=== PATIENT | female | born 1940 | race Caucasian/White ===

== ENCOUNTER 2024-07-03 21:57 | Emergency (ER) | payer MEDICARE, SELFPAY ==
[2024-07-03] VITALS (16 sets, daily range): BP systolic 104–130; BP diastolic 53–70; PULSE 74; TEMP 36.6; O2SAT 91–94; BMI 19.6
--- NOTE | 2024-07-03 22:14 | ED.URI1 ---
HPI - URI/Sore Throat General Chief Complaint: Upper Respiratory Infection Stated Complaint: Upper Respiratory Infection Time Seen by Provider: 07/03/24 22:05 Source: patient History of Present Illness HPI Narrative: sore throat for 4 days. Feels like swallowing razor blades. mild cough. Not short of breath. No abdominal pain, nausea or vomiting. No fever Related Data Home Medications ?Medication ?Instructions ?Recorded ?Confirmed amlodipine 5 mg tablet 5 mg PO DAILY 07/03/24 07/03/24 atenolol 100 mg tablet 100 mg PO DAILY 07/03/24 07/03/24 lisinopril 20 mg tablet 20 mg PO DAILY 07/03/24 07/03/24 rosuvastatin 10 mg tablet 10 mg PO DAILY 07/03/24 07/03/24 Allergies Allergy/AdvReac Type Severity Reaction Status Date / Time No Known Drug Allergies Allergy Verified 07/03/24 22:06 Review of Systems ROS Status of ROS 10 or more systems reviewed and unremarkable except as noted in history and below Exam Constitutional Vital Signs, click to edit/add: Last Vital Signs Temp 97.8 F 07/03/24 22:00 Pulse 74 07/03/24 22:00 Resp 18 07/03/24 22:00 BP 104/53 07/03/24 23:30 Pulse Ox 92 L 07/03/24 23:30 O2 Del Method Room Air 07/03/24 22:00 Common normals: no apparent distress, average body habitus, oriented x3, no limitations, healthy appearing, alert and well nourished [facility] Common normals: normocephalic and head/scalp atraumatic Eye Common normals: PERRL, EOMs intact bilaterally and conjunctivae normal Respiratory Common normals: normal respiratory effort, no retractions, no use of accessory muscles and clear to auscultation bilaterally Cardio Common normals: regular rate, regular rhythm, S1 normal heart sound and S2 normal heart sound GI Common normals: Normal to inspection, nondistended, normoactive bowel sounds present, soft to palpation and non-tender Extremity Common normals: normal to inspection and full ROM Neuro Common normals: oriented x3, CN's II-XII intact bilaterally, moves all extremities and no focal motor deficits Psych Appearance: grossly normal Course Vital Signs Vital signs: Vital Signs Temperature 97.8 F 07/03/24 22:00 Pulse Rate 74 07/03/24 22:00 Respiratory Rate 18 07/03/24 22:00 Blood Pressure 130/67 07/03/24 22:00 Pulse Oximetry 93 L 07/03/24 22:00 Oxygen Delivery Method Room Air 07/03/24 22:00 Temperature 97.8 F 07/03/24 22:00 Pulse Rate 74 07/03/24 22:00 Respiratory Rate 18 07/03/24 22:00 Blood Pressure 104/53 07/03/24 23:30 Pulse Oximetry 92 L 07/03/24 23:30 Oxygen Delivery Method Room Air 07/03/24 22:00 MDM - URI/Sore Throat MDM Narrative Medical decision making narrative: patient ill past 4 days with sore throat and mild cough. Not short of breath. No fever or distress. Main complaint is pain with swallowing. pharynx is clear and strep screen is neg. cxray with RML infiltrate. Patient medicated with Rocephin and zithromax. Discharged and advised of close follow up Lab Data Labs: Lab Results 07/03/24 Range/Units 22:05 SARS-CoV-2 Ag (CV2AG) Negative (NEGATIVE) Streptococcus Screen Negative Discharge Plan Discharge Chief Complaint: Upper Respiratory Infection Clinical Impression: Pharyngitis, Pneumonia Patient Disposition: Home, Self-Care Prescriptions / Home Meds: No Action atenolol 100 mg tablet 100 mg PO DAILY lisinopril 20 mg tablet 20 mg PO DAILY amlodipine 5 mg tablet 5 mg PO DAILY rosuvastatin 10 mg tablet 10 mg PO DAILY Print Language: Maldivian Instructions: Pharyngitis (ED), Community Acquired Pneumonia (ED) Additional Instructions: follow up with Dr Jacobo in the next couple of days for recheck Referrals: Donnell Raymond DO [Primary Care Provider] - 1 week
--- NOTE | 2024-07-03 22:16 | XR_ITS ---
The [address] [address] Patient Name: TAWANNA GREGORY MRN: [id number] date: 1940 Sex: F Assigned Patient Location: ED.MAIN Current Patient Location: ED.MAIN Accession/Order Number: [id number] Exam Date: 07/03/2024 22:22 Report Date: 07/03/2024 23:39 At the request of: MARTINEZ CHRISTIANSON Procedure: XR chest 2V XR chest 2V 07/03/2024 9:22 PM CDT: History: cough Comparison: None. Technique: 2 view chest Findings: The cardiomediastinal silhouette is normal there is a right middle lobe infiltrate. The left lung is clear. There is no effusion or pneumothorax. The bones are intact. XR/XR chest 2V Impression: Right middle lobe pneumonia. Recommend follow-up imaging to ensure resolution. Electronically authenticated by: MARK JOYCE Date: 07/03/2024 23:39
[2024-07-03 22:29] LABS: Internal Control Within Normal Limits; Strep A Antigen Screen Negative
[2024-07-03 22:30] LABS: Internal Control Within Normal Limits; SARS-CoV-2 Ag NEGATIVE (NEGATIVE)
[2024-07-04] VITALS: BP 112/60; O2SAT 92
[2024-07-04 00:10] VITALS: O2SAT 92
[2024-07-04] MEDS: CEFTRIAXONE 1,000 MG, LIDOCAINE HCL/PF 2.1 ML IM (00:13)
[2024-07-04] MEDS: AZITHROMYCIN 250 MG TABLET 500 MG PO (00:13)
== END 2024-07-04 00:33 | disposition home or self-care (01) ==
PROVIDERS: Emergency Provider Internal Medicine; PCP Family Medicine
DX: J02.9 Acute pharyngitis, unspecified (principal); J18.9 Pneumonia, unspecified organism; Z20.822 Contact with and (suspected) exposure to COVID-19
CPT/HCPCS: 71046; 87070; 87811; 87880; 96372; 99284; J0696

== ENCOUNTER 2024-07-11 10:40 | Outpatient (OUT) | payer MEDICARE, SELFPAY ==
--- NOTE | 2024-07-11 10:52 | XR_ITS ---
The [address] [address] Patient Name: TAWANNA GREGORY MRN: [id number] date: 1940 Sex: F Assigned Patient Location: RAD Current Patient Location: RAD Accession/Order Number: [id number] Exam Date: 07/11/2024 11:01 Report Date: 07/11/2024 11:54 At the request of: TERRY MARISCAL Procedure: XR chest 2V PROCEDURE: XR chest 2V DATE: 07/11/2024 10:01 AM CDT COMPARISONS: 07/03/2024 CLINICAL INDICATION: 84 years Female Pneumonia J18.9 FINDINGS: The cardiomediastinal silhouette and pulmonary vasculature are within normal limits. The previous exam from 07/03/2024 described right middle lobe pneumonia as noted in the right perihilar and infrahilar region on frontal view. On today's exam this presumed infiltrate is less prominent. The lungs are otherwise clear. There is no evidence of pleural effusion or pneumothorax. XR/XR chest 2V IMPRESSION: Subtle heterogeneous airspace disease of the right perihilar and infrahilar region on frontal view, likely representing resolving right middle lobe inflammatory infiltrate Electronically authenticated by: TALIA HUTCHINSON Date: 07/11/2024 11:54
--- OUTSIDE RECORDS SUMMARY | 2024-07-11 10:54 | XMS_ITS | CCD ---
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 Neutrophils (Bld) [#/Vol] 4.4 10*3/uL 1.8-7.7 [facility] Neutrophils/100 WBC Auto (Bl d)Ordered By: Christoph Dc on 11-20-2022 Neutrophils/100 WBC (Bld) 64.6 % . [facility] No Panel InformationOrdered By: Christoph Dc on 11-20-2022 POC Estimated GFR 57 [facility] Comment on above: GFR estimated refere nce range: According to KDOQI guidelines, <60 ml/min/1.73m2 is sufficient to diagnose a patient with chronic kidney disease. POC Estimated GFR Non- Amer 47 [facility] Estimated GFR () 57 mL/Min [facility] Comment on above: GFR estimated refere nce range: According to KDOQI guidelines, <60 ml/min/1.73m2 is sufficient to diagnose a patient with chronic kidney disease. Pharmacy Creatinine Clearance (Chem 36.34 [facility] Nucleated erythrocytes [Pres ence] in Blood by Automated countOrdered By: Christoph Dc on 11-20-2022 Nucleated RBC Auto Ql (Bld) 0.2 /100{WBC} 0-0.5 [facility] Platelet mean volume Auto (B ld) [Entitic vol]Ordered By: Christoph Dc on 11-20-2022 Platelet mean volume (Bld) [Entitic vol] 9.4 fL 6.3-10.7 [facility] Platelet poor plasma interna tional normalized ratio (INR) by coagulation assay (relatOrdered By: Christoph Dc on 11-20-2022 INR Coag (PPP) [Relative time] 1.0 {INR} [facility] Comment on above: INR Therapeutic Rang e A) Pre- and Peroperative OAT started two weeks before surgery. NOT HIP SURGERY: 1.5 - 2.5 HIP SURGERY: 2 - 3B) Primary and secondary prevention of venous THROMBOSIS: 2 - 3C) Active venous thrombosis, pulmonary embolismand prevention of recurrent venous thrombosis: 2 - 3D) Prevention of arterial thromboembolismincluding patients with mechanical heart valves: 3 - 4.5 Platelets Auto (Bld) [#/Vol] Ordered By: Christoph Dc on 11-20-2022 Platelets (Bld) [#/Vol] 181 10*3/uL 150-450 [facility] Protein [Mass/volume] in Ser um or PlasmaOrdered By: Christoph Dc on 11-20-2022 Protein [Mass/Vol] 6.6 g/dL 6.1-7.9 [facility] RBC Auto (Bld) [#/Vol]Ordere d By: Christoph Dc on 11-20-2022 RBC (Bld) [#/Vol] 4.07 10*6/uL 3.60-5.00 [facility] Serum or plasma alanine white otransferase measurement without P-5'-P (enzymatic activiOrdered By: Christoph Dc on 11-20-2022 ALT No additional P-5'-P [Catalytic activity/Vol] 31 U/L 10-60 [facility] Serum or plasma albumin/glob ulin mass ratioOrdered By: Christoph Dc on 11-20-2022 Albumin/Globulin [Mass ratio] 1.2 {ratio} [facility] Serum or plasma alkaline gisell sphatase measurement (enzymatic activity/volume)Ordered By: Christoph Dc on 11-20-2022 ALP [Catalytic activity/Vol] 66 U/L 32-92 [facility] Serum or plasma anion gap de terminationOrdered By: Christoph Dc on 11-20-2022 Anion gap [Moles/Vol] 14.3 mmol/L 6.0-15.0 [facility] Serum or plasma aspartate am inotransferase measurement (enzymatic activity/volume)Ordered By: Christoph Dc on 11-20-2022 AST [Catalytic activity/Vol] 44 U/L 10-42 [facility] Serum or plasma calcium myrna urement (mass/volume)Ordered By: Christoph Dc on 11-20-2022 Calcium [Mass/Vol] 9.7 mg/dL 8.2-10.2 [facility] Serum or plasma chloride dimas surement (moles/volume)Ordered By: Christoph Dc on 11-20-2022 Chloride [Moles/Vol] 102 mmol/L 95-114 [facility] Serum or plasma glucose myrna urement (mass/volume)Ordered By: Christoph Dc on 11-20-2022 Glucose [Mass/Vol] 195 mg/dL 70-100 [facility] Comment on above: ADA recommended refe rence rangeRandom Glucose Reference Range is dependent on time and content of last meal. Glucose of more than 200 mg/dL in a nonstressed, ambulatory subject supports the diagnosis of Diabetes Mellitus. Serum or plasma non-glucuron idated bilirubin measurement (mass/volume)Ordered By: Christoph Dc on 11-20-2022 Bilirubin.indirect [Mass/Vol] TNP [facility] Comment on above: Test not performed Serum or plasma potassium me asurement (moles/volume)Ordered By: Christoph Dc on 11-20-2022 Potassium [Moles/Vol] 3.6 mmol/L 3.5-5.1 [facility] Serum or plasma sodium measu rement (moles/volume)Ordered By: Christoph Dc on 11-20-2022 Sodium [Moles/Vol] 138 mmol/L 136-146 [facility] Serum or plasma total biliru bin measurement (mass/volume)Ordered By: Christoph Dc on 11-20-2022 Bilirubin [Mass/Vol] 0.5 mg/dL 0.3-1.2 [facility] Serum or plasma total carbon dioxide measurement (moles/volume)Ordered By: Christoph Dc on 11-20-2022 CO2 [Moles/Vol] 25.3 mmol/L 22.0-30.0 [place] Serum or plasma urea nitroge n measurement (mass/volume)Ordered By: Christoph Dc on 11-20-2022 Urea nitrogen [Mass/Vol] 10 mg/dL 9-23 [facility] Troponin I.cardiac [Mass/vol ume] in Serum or Plasma by High sensitivity methodOrdered By: Christoph Dc on 11-20-2022 Troponin I.cardiac High sensitivity method [Mass/Vol] 11 pg/mL 0-15 [facility] WBC Auto (Bld) [#/Vol]Ordere d By: Christoph Dc on 11-20-2022 WBC (Bld) [#/Vol] 6.9 10*3/uL 3.8-11.6 [facility] COVID + FLU Quick Testingon 10-23-2022 SARS-CoV-2 (COVID-19) RNA JEREMIAH+probe Ql (Unsp spec) Negative [facility] Other COVID + FLU Quick Testing Negative [facility] Other RSVon 10-23-2022 RSV Ag IA Ql (Unsp spec) Positive [facility] Other Body fluid albumin measureme nt (mass/volume)Ordered By: Donnell Raymond on 07-09-2022 Albumin (Body fld) [Mass/Vol] 4.0 g/dL 3.2-5.5 [facility] Cholesterol [Mass/volume] in Serum or PlasmaOrdered By: Donnell Raymond on 07-09-2022 Cholesterol [Mass/Vol] 200 mg/dL 140-200 [facility] Comment on above: Chol less than 200 m g/dl low riskChol 201-239 mg/dl borderline riskChol 240 mg/dl and greater high risk Cholesterol in LDL Calc [Mas s/Vol]Ordered By: Donnell Raymond on 07-09-2022 Cholesterol in LDL [Mass/Vol] 87 mg/dL 0-100 [facility] Comment on above: LDL ATP III CLASSIFI CATIONLDL less than 100 mg/dL OptimalLDL 100-129 mg/dL Near or above optimalLDL 130-159 mg/dL Borderline highLDL 160-189 mg/dL HighLDL greater than 189 mg/dL Very high Cholesterol in VLDL Calc [Ma ss/Vol]Ordered By: Donnell Raymond on 07-09-2022 Cholesterol in VLDL [Mass/Vol] 30 mg/dL [facility] Creatinine and Glomerular fi ltration rate.predicted panel (S/P/Bld)Ordered By: Donnell Raymond on 07-09-2022 Creatinine [Mass/Vol] 0.91 mg/dL 0.44-1.03 [facility] Estimated glomerular filtrat ion rate (GFR) non- AmericanOrdered By: Donnell Raymond on 07-09-2022 GFR/1.73 sq M.predicted among non-blacks MDRD (S/P/Bld) [Vol rate/Area] 59 mL/Min [facility] Globulin Calc (S) [Mass/Vol] Ordered By: Donnell Raymond on 07-09-2022 Globulin (S) [Mass/Vol] 3.0 g/dL [facility] No Panel InformationOrdered By: Donnell Raymond on 07-09-2022 Estimated GFR () > 60 mL/Min [facility] Comment on above: GFR estimated refere nce range: According to KDOQI guidelines, <60 ml/min/1.73m2 is sufficient to diagnose a patient with chronic kidney disease. Pharmacy Creatinine Clearance (Chem N/A [facility] Protein [Mass/volume] in Ser um or PlasmaOrdered By: Donnell Raymond on 07-09-2022 Protein [Mass/Vol] 7.0 g/dL 6.1-7.9 [facility] Serum or plasma alanine white otransferase measurement without P-5'-P (enzymatic activiOrdered By: Donnell Raymond on 07-09-2022 ALT No additional P-5'-P [Catalytic activity/Vol] 21 U/L 10-60 [facility] Serum or plasma albumin/glob ulin mass ratioOrdered By: Donnell Raymond on 07-09-2022 Albumin/Globulin [Mass ratio] 1.3 {ratio} [facility] Serum or plasma alkaline gisell sphatase measurement (enzymatic activity/volume)Ordered By: Donnell Raymond on 07-09-2022 ALP [Catalytic activity/Vol] 46 U/L 32-92 [facility] Serum or plasma anion gap de terminationOrdered By: Donnell Raymond on 07-09-2022 Anion gap [Moles/Vol] 13.0 mmol/L 6.0-15.0 [facility] Serum or plasma aspartate am inotransferase measurement (enzymatic activity/volume)Ordered By: Donnell Raymond on 07-09-2022 AST [Catalytic activity/Vol] 25 U/L 10-42 [facility] Serum or plasma calcium myrna urement (mass/volume)Ordered By: Donnell Raymond on 07-09-2022 Calcium [Mass/Vol] 9.5 mg/dL 8.2-10.2 [facility] Serum or plasma chloride dimas surement (moles/volume)Ordered By: Donnell Raymond on 07-09-2022 Chloride [Moles/Vol] 98 mmol/L 95-114 [facility] Serum or plasma glucose myrna urement (mass/volume)Ordered By: Donnell Raymond on 07-09-2022 Glucose [Mass/Vol] 96 mg/dL 70-100 [facility] Comment on above: ADA recommended refe rence rangeRandom Glucose Reference Range is dependent on time and content of last meal. Glucose of more than 200 mg/dL in a nonstressed, ambulatory subject supports the diagnosis of Diabetes Mellitus. Serum or plasma high density lipoprotein (HDL) cholesterol measurementOrdered By: Donnell Raymond on 07-09-2022 Cholesterol in HDL [Mass/Vol] 83 mg/dL 35-85 [facility] Comment on above: HDL CHOL ATP-III CLA SSIFICATION Cardiovascular RiskHDL > or equal to 60 mg/dL LOWHDL < 40 mg/dL HIGH Serum or plasma potassium me asurement (moles/volume)Ordered By: Donnell Raymond on 07-09-2022 Potassium [Moles/Vol] 4.1 mmol/L 3.5-5.1 [facility] Serum or plasma sodium measu rement (moles/volume)Ordered By: Donnell Raymond on 07-09-2022 Sodium [Moles/Vol] 136 mmol/L 136-146 [facility] Serum or plasma total biliru bin measurement (mass/volume)Ordered By: Donnell Raymond on 07-09-2022 Bilirubin [Mass/Vol] 0.7 mg/dL 0.3-1.2 [facility] Serum or plasma total carbon dioxide measurement (moles/volume)Ordered By: Donnell Raymond on 07-09-2022 CO2 [Moles/Vol] 29.1 mmol/L 22.0-30.0 [place] Serum or plasma total choles terol/high density lipoprotein (HDL) cholesterol mass ratOrdered By: Donnell Raymond on 07-09-2022 Cholesterol.total/Chol esterol in HDL [Mass ratio] 2.4 {ratio} <5.0 [facility] Serum or plasma urea nitroge n measurement (mass/volume)Ordered By: Donnell Raymond on 07-09-2022 Urea nitrogen [Mass/Vol] 9 mg/dL 9-23 [facility] Triglyceride [Mass/volume] i n Serum or PlasmaOrdered By: Donnell Raymond on 07-09-2022 Triglyceride [Mass/Vol] 150 mg/dL 35-149 [facility] Comment on above: TRIG ATP III CLASSIF ICATIONTRIG less than 150 mg/dL NormalTRIG 150-199 mg/dL Borderline highTRIG 200-500 mg/dL High TRIG greater than 500 mg/dL Very highStandard traceable to the Center for Disease Conrtrol and Prevention (CDC) test method. Complete Blood Count Auto Di ffon 04-02-2022 Basophils (Bld) [#/Vol] 0.184820383 10*3/uL Normal 0.0-0.2 10*3/uL [facility] Other Basophils/100 WBC (Bld) 1.000 % . % [facility] Other Eosinophils (Bld) [#/Vol] 0.377279634 10*3/uL Normal 0.0-0.45 10*3/uL [facility] Other Eosinophils/100 WBC (Bld) 3.000 % . % [facility] Other Erythrocyte distribution width (RBC) [Ratio] 14.600 % Normal 11.9-15.3 % [facility] Other Hematocrit (Bld) [Volume fraction] 39.100 % Normal 34.0-46.4 % [facility] Other Hemoglobin (Bld) [Mass/Vol] 13.070046 g/dL Normal 11.8-15.4 g/dL [facility] Other Lymphocytes (Bld) [#/Vol] 1.533664802 10*3/uL Normal 1.00-4.8 10*3/uL [facility] Other Lymphocytes/100 WBC (Bld) 28.400 % . % [facility] Other MCH (RBC) [Entitic mass] 33.2000 pg Normal 24.7-34.3 pg [facility] Other MCV (RBC) [Entitic vol] 99.5000 fL Normal 80-100 fL [facility] Other Monocytes (Bld) [#/Vol] 0.728320563 10*3/uL Normal 0.0-0.8 10*3/uL [facility] Other Monocytes/100 WBC (Bld) 10.300 % . % [facility] Other Neutrophils (Bld) [#/Vol] 3.542607245 10*3/uL Normal 1.8-7.7 10*3/uL [facility] Other Neutrophils/100 WBC (Bld) 57.300 % . % [facility] Other Platelet mean volume (Bld) [Entitic vol] 9.3000 fL Normal 6.3-10.7 fL [facility] Other Platelets (Bld) [#/Vol] 250 10*3/uL Normal 150-450 10*3/uL [facility] Other RBC (Bld) [#/Vol] 3.4792231109 10*6/uL Normal 3. 60-5.00 10*6/uL [facility] Other WBC (Bld) [#/Vol] 6.766312607 10*3/uL Normal 3.8 -11.6 10*3/uL [facility] Other Complete Blood Count Auto Diff 6.2 10*3/uL Normal 4.5-11.0 10*3/uL [facility] Other Complete Blood Count Auto Diff 33.3 g/dL Normal 32.0-35.0 g/dL [facility] Other Complete Blood Count Auto Diff 0.0 % Normal 0-0.5 % [facility] Other Comprehensive Metabolic Pane bravo 04-02-2022 Albumin [Mass/Vol] 4.973731 g/dL Normal 3.2-5.5 g/dL [facility] Other Albumin/Globulin [Mass ratio] 1.5 {ratio} [facility] Other ALP [Catalytic activity/Vol] 50 U/L Normal 32-92 U/L [facility] Other ALT [Catalytic activity/Vol] 18 U/L Normal 10-60 U/L [facility] Other AST [Catalytic activity/Vol] 25 U/L Normal 10-42 U/L [facility] Other Bilirubin [Mass/Vol] 0.9525599 mg/dL Normal 0.3- 1.2 mg/dL [facility] Other Calcium [Mass/Vol] 9.9099494 mg/dL Normal 8.2-10 .2 mg/dL [facility] Other Chloride [Moles/Vol] 98 mmol/L Normal 95-114 mmol/L [facility] Other CO2 [Moles/Vol] 26.82987408 mmol/L Normal 22.0-3 0.0 mmol/L [facility] Other Creatinine [Mass/Vol] 0.72090647 mg/dL Normal 0. 44-1.03 mg/dL [facility] Other Glucose [Mass/Vol] 96 mg/dL Normal 70-100 mg/dL [facility] Other Potassium [Moles/Vol] 4.18104562 mmol/L Normal 3 .5-5.1 mmol/L [facility] Other Protein [Mass/Vol] 7.365323 g/dL Normal 6.1-7.9 g/dL [facility] Other Sodium [Moles/Vol] 137 mmol/L Normal 136-146 mmol/L [facility] Other Urea nitrogen [Mass/Vol] 12 mg/dL Normal 9-23 mg/dL [facility] Other Comprehensive Metabolic Panel 58 [facility] Other Comprehensive Metabolic Panel > 60 [facility] Other Comprehensive Metabolic Panel 2.9 g/dL [facility] Other Thyroid Stimulating Hormoneo n 04-02-2022 TSH Qn 2.69459197593 m[IU]/L Normal 0.45-5 .33 u[iU]/mL [facility] Other Covid-19 PCR (CVDTBH)on EUA Statement SEE BELOW Normal [facility] Comment on above: Result Comment: This test is not yet approved or cleared by the [place] FDA. When there are no FDA-approved or cleared tests available, and other criteria are met, FDA can make tests available under an emergency access mechanism called an Emergency Use Authorization (EUA). The EUA for this test is supported by the Janitorial Assistant of Health and Human Service?s (HHS?s) declaration that circumstances exist to justify the emergency use of in vitro diagnostics for the detection and/or diagnosis of the virus that causes COVID-19. This EUA will remain in effect (meaning this test can be used) for the duration of the COVID-19 declaration justifying emergency of IVDs, unless it is terminated or revoked by FDA (after which the test may no longer be used). When diagnostic testing is negative, the possibility of a false negative should be considered in the context of a patients recent exposures and the presence of clinical signs and symptoms consistent with SARS-CoV-2. Performed By: #### C VDTB #### [facility] [address] [place] [id number] [employer] SARS-CoV-2 (COVID-19) RNA JEREMIAH+probe Ql (Unsp spec) Detected Abnormal NOT DETECTED [facility] Comment on above: Result Comment: This test is not yet approved or cleared by the [place] FDA. When there are no FDA-approved or cleared tests available, and other criteria are met, FDA can make tests available under an emergency access mechanism called an Emergency Use Authorization (EUA). The EUA for this test is supported by the [place] of Health and Human Service's (HHS's) declaration that circumstances exist to justify the emergency use of in vitro diagnostics for the detection and/or diagnosis of the virus that causes COVID-19. This EUA will remain in effect (meaning this test can be used) for the duration of the COVID-19 declaration justifying emergency of IVDs, unless it is terminated or revoked by FDA (after which the test may no longer be used). Performed By: #### C VDTB #### [facility] [address] [place] [id number] [employer] Vital Signs Date Time Vital Sign Value Performing Clinician Facility 04-06-2024 09:49-0400 Body height 170.18 cm DO Donnell Raymond Work Phone: [facility] 04-06-2024 09:49-0400 Body mass index (BMI) [Ratio] 19.1 kg/m2 DO Donnell Raymond Work Phone: [facility] 04-06-2024 09:49-0400 Body weight 55.33 kg DO Donnell Raymond Work Phone: [facility] 04-06-2024 09:49-0400 Diastolic blood pressure 62 mm[Hg] DO Donnell Raymond Work Phone: [facility] 04-06-2024 09:49-0400 Heart rate 77 /min DO Donnell Raymond Work Phone: [facility] 04-06-2024 09:49-0400 Respiratory rate 16 /min DO Donnell Raymond Work Phone: [facility] 04-06-2024 09:49-0400 SaO2% (BldA) [Mass fraction] 92 % DO Donnell Raymond Work Phone: [facility] 04-06-2024 09:49-0400 Systolic blood pressure 126 mm[Hg] DO Donnell Raymond Work Phone: [facility] 06-23-2023 10:00-0400 Body height 170.18 cm Sherry Gaytan Other [facility] [place] Other 06-23-2023 10:00-0400 Body mass index (BMI) [Ratio] 19.73 kg/m2 Sherry Gaytan Other [facility] Other 06-23-2023 10:00-0400 Body weight 57.15 kg Sherry Gaytan Other [facility] Other 06-23-2023 10:00-0400 Diastolic blood pressure 54 mm[Hg] Sherry [employer] Other [facility] Other 06-23-2023 10:00-0400 Systolic blood pressure 116 mm[Hg] Sherry [employer] Other [facility] Other 04-01-2023 09:15-0400 Body height 170.18 cm Donnell griddigjose d Other [facility] Other 04-01-2023 09:15-0400 Body mass index (BMI) [Ratio] 20.2 kg/m2 Donnellmaki Godwinjose d Other [facility] Other 04-01-2023 09:15-0400 Body weight 58.51 kg Donnell Raymond Other [facility] Other 04-01-2023 09:15-0400 Diastolic blood pressure 64 mm[Hg] Donnellmaki Raymond Other [facility] Other 04-01-2023 09:15-0400 Respiratory rate 16 /min Donnell Mandi Other [facility] Other 04-01-2023 09:15-0400 SaO2% (BldA) [Mass fraction] 96 % Donnellmaki Raymond Other [facility] Other 04-01-2023 09:15-0400 Systolic blood pressure 128 mm[Hg] Donnellmaki Raymond Other [facility] Other 03-31-2023 09:20-0400 Body height 170.18 cm [employer] Other [facility] Other 03-31-2023 09:20-0400 Body mass index (BMI) [Ratio] 19.58 kg/m2 [employer] Other [facility] Other 03-31-2023 09:20-0400 Body weight 56.7 kg [employer] Other [facility] Other 02-17-2023 10:20-0400 Body height 170.18 cm [employer] Other [facility] Other 02-17-2023 10:20-0400 Body mass index (BMI) [Ratio] 19.58 kg/m2 Sherry Gaytan Other [facility] Other 02-17-2023 10:20-0400 Body weight 56.7 kg Sherry Gaytan Other [facility] Other 01-02-2023 10:45-0400 Body height 170.18 cm Donnell Raymond Other [facility] Other 01-02-2023 10:45-0400 Body mass index (BMI) [Ratio] 19.58 kg/m2 Donnell Raymond Other [facility] Other 01-02-2023 10:45-0400 Body weight 56.7 kg Donnell Raymond Other [facility] Other 01-02-2023 10:45-0400 Diastolic blood pressure 60 mm[Hg] Donnell Raymond Other [facility] Other 01-02-2023 10:45-0400 Respiratory rate 16 /min Donnell Raymond Other [facility] Other 01-02-2023 10:45-0400 SaO2% (BldA) [Mass fraction] 92 % Donnell Raymond Other [facility] Other 01-02-2023 10:45-0400 Systolic blood pressure 122 mm[Hg] Donnell Raymond Other [facility] Other 12-29-2022 09:30-0400 Body height 170.18 cm Sherry Gaytan Other [facility] Other 12-29-2022 09:30-0400 Body mass index (BMI) [Ratio] 19.26 kg/m2 Sherry Gaytan Other [facility] Other 12-29-2022 09:30-0400 Body weight 55.79 kg Sherry Gaytan Other [facility] Other 12-29-2022 09:30-0400 Diastolic blood pressure 60 mm[Hg] [employer] Other [facility] Other 12-29-2022 09:30-0400 Systolic blood pressure 120 mm[Hg] [employer] Other [facility] Other 11-26-2022 11:45-0500 Body height 170.18 cm Donnell Raymond Other [facility] Other 11-26-2022 11:45-0500 Body mass index (BMI) [Ratio] 19.89 kg/m2 Donnell Raymond Other [facility] Other 11-26-2022 11:45-0500 Body weight 57.61 kg Donnell Raymond Other [facility] Other 11-26-2022 11:45-0500 Diastolic blood pressure 64 mm[Hg] Donnell Raymond Other [facility] Other 11-26-2022 11:45-0500 Respiratory rate 16 /min Donnell Raymond Other [facility] Other 11-26-2022 11:45-0500 SaO2% (BldA) [Mass fraction] 94 % Donnell Raymond Other [facility] Other 11-26-2022 11:45-0500 Systolic blood pressure 122 mm[Hg] Donnell Raymond Other [facility] Other 11-20-2022 15:16-0500 Diastolic blood pressure 80 mm[Hg] DO Donnell Godwins Work Phone: [facility] 11-20-2022 15:16-0500 Heart rate 80 /min DO Donnell Raymond Work Phone: [facility] 11-20-2022 15:16-0500 Respiratory rate 18 /min DO Donnell Godwins Work Phone: [facility] 11-20-2022 15:16-0500 SaO2% (BldA) [Mass fraction] 95 % DO Donnell Raymond Work Phone: [facility] 11-20-2022 15:16-0500 Systolic blood pressure 120 mm[Hg] DO Donnell Raymond Work Phone: [facility] 11-20-2022 12:33-0500 Body height 170.18 cm DO Donnell Raymond Work Phone: [facility] 11-20-2022 12:33-0500 Body temperature 96.9 [degF] DO Donnell Raymond Work Phone: [facility] 11-20-2022 12:33-0500 Body weight 59.4 kg DO Donnell Godwins Work Phone: [facility] 04-02-2022 09:15-0400 Body height Donnell Raymond Other [facility] [place] Other 04-02-2022 09:15-0400 Body mass index (BMI) [Ratio] 21.14 kg/m2 Donnell Godwinjose d Other [facility] Other 04-02-2022 09:15-0400 Body weight 61.24 kg Donnell Raymond Other [email or web address] Other 04-02-2022 09:15-0400 Diastolic blood pressure 66 mm[Hg] Donnell Raymond Other [email or web address] Other 04-02-2022 09:15-0400 Respiratory rate 16 /min Donnell Raymond Other [email or web address] Other 04-02-2022 09:15-0400 SaO2% (BldA) [Mass fraction] 95 % Donnell Raymond Other [email or web address] Other 04-02-2022 09:15-0400 Systolic blood pressure 110 mm[Hg] Donnell Mandi Other [email or web address] Other Encounters Encounter Date Encounter Type Care Provider Facility Start: 04-06-2024 End: 04-06-2024 ambulatory DO Donnell Raymond Work Phone: [facility] Work Phone: Start: 04-06-2024 End: 04-06-2024 Patient encounter procedure DO Donnellmaki Raymond Work Phone: [facility] [place] Work Phone: Start: 03-30-2024 End: 03-30-2024 Patient encounter procedure DO Donnell Raymond Work Phone: [facility] [place] Work Phone: Start: 03-30-2024 End: 03-30-2024 ambulatory DO Donnellmaki Raymond Work Phone: [facility] Work Phone: Start: 03-10-2024 Non-patient / Non-visit DO Alberto Raymond Work Phone: [facility] [place] Work Phone: Start: 02-19-2024 End: 02-19-2024 Patient encounter procedure DO Donnell Raymond Work Phone: [facility] Work Phone: Start: 02-19-2024 End: 02-19-2024 ambulatory DO Donnell Raymond Work Phone: [facility] Work Phone: Start: 10-21-2023 End: 10-21-2023 ambulatory Donnell Mandi Other [facility] [place] Other Start: 10-21-2023 Telephone encounter Donnell Raymond [facility] Start: 06-23-2023 Office outpatient vi sit 15 minutes Sherry Gaytan [facility] Start: 06-23-2023 End: 06-23-2023 Patient encounter procedure DO Donnell Raymond Work Phone: [facility] Work Phone: Start: 06-23-2023 End: 06-23-2023 ambulatory DO Donnell Raymond Work Phone: [facility] Work Phone: Start: 04-01-2023 Office outpatient vi sit 25 minutes Donnell Raymond [facility] [place] Start: 04-01-2023 End: 04-01-2023 ambulatory DO Donnell Raymond Work Phone: [facility] Work Phone: Start: 04-01-2023 End: 04-01-2023 Patient encounter procedure DO Donnell Raymond Work Phone: [facility] [place] Work Phone: Start: 03-31-2023 End: 03-31-2023 ambulatory Sherry Gaytan Other [email or web address] Other Start: 03-31-2023 Office outpatient vi sit 15 minutes Sherry Gaytan [facility] Start: 02-17-2023 End: 02-17-2023 ambulatory Sherrymat Gaytan Other [facility] [place] Other Start: 02-17-2023 Office outpatient vi sit 15 minutes Sherry Gaytan [facility] Start: 02-05-2023 End: 02-05-2023 ambulatory DO Donnell Raymond Work Phone: [facility] Work Phone: Start: 02-05-2023 End: 02-05-2023 Patient encounter procedure DO Donnell Raymond Work Phone: [facility] Work Phone: Start: 01-12-2023 End: 01-12-2023 ambulatory Donnell Raymond Other [facility] [place] Other Start: 01-12-2023 Telephone encounter Donnell Raymond [facility] [place] Start: 01-02-2023 End: 01-02-2023 ambulatory Donnell Mandi Other [facility] [place] Other Start: 01-02-2023 Office outpatient vi sit 15 minutes Donnell Raymond [facility] [place] Start: 12-30-2022 End: 12-30-2022 ambulatory Sherry Lucila Other [facility] Other Start: 12-30-2022 Telephone encounter Sherry Gaytan [facility] [employer] Start: 12-30-2022 End: 12-30-2022 Patient encounter procedure DO Donnell Raymond Work Phone: [facility] Work Phone: Start: 12-29-2022 End: 12-29-2022 ambulatory Sherry Gaytan Other [facility] Other Start: 12-29-2022 Office outpatient ne w 45 minutes Sherry Gaytan [facility] Start: 12-26-2022 End: 12-26-2022 ambulatory Donnell Raymond Other [email or web address] Other Start: 12-26-2022 Telephone encounter Donnell Raymond [facility] Start: 12-24-2022 End: 12-24-2022 ambulatory DO Donnell Raymond Work Phone: [facility] Work Phone: Start: 12-24-2022 End: 12-24-2022 Patient encounter procedure DO Donnell Raymond Work Phone: [facility] [address] Work Phone: Start: 12-15-2022 End: 12-15-2022 ambulatory Donnell Raymond Other [facility] [place] Other Start: 12-15-2022 Telephone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 ized section and content) DATE CREATED AUTHOR 05/18/2021 [facility] DATE CREATED AUTHOR AUTHOR'S ORGANIZ ATION 04/01/2024 [facility] REASON FOR VISIT (unrecogniz ed section and content) yearly checkrefillClinicalFl u, RSVMVAMRI deniedNo InformationClinicalreferred by Dr Raymond Consult and treatNeurosurgery Office Notes5 week follow up MVAMammogramreferred by Dr Raymond Consult and treatbrace6 WK FOLLOW UP PTback pain, pt f/u1 year Follow up hypertension/hyperlipidemiafollow up compression fxClinical-bpk to send rx Care Teams (unrecognized sec tion and content) Team Status: Inactive Member Role Status Dates Donnell Raymond DO Primary Care Provide r, Attending Provider, Family Provider Active Team Status: Active Member Role Status Catia Raymond DO Family Provider Active Donnell Raymond DO Primary Care Provider Active Team Status: Inactive Member Role Status Catia Raymond DO Primary Care Provider, Family Provider Active Christoph Dc DO Emergency Provider Active Team Status: Inactive Member Role Status Dates Donnell Raymond DO Primary Care Provider, Family Provider Active JERI Daniels Attending Provider Active Team Status: Inactive Member Role Status Dates Donnell Raymond DO Primary Care Provide r, Attending Provider Active Start: February 19, 2024 End: February 19, 2024 Team Status: Active Member Role Status Dates Donnell Raymond DO Primary Care Provider Active Sta rt: March 10, 2024 LORNA Loera Attending Provider Active Start: March 10, 2024 Team Status: Inactive Member Role Status Dates Donnell Raymond DO Primary Care Provide r, Attending Provider Active Start: March 30, 2024 End: March 30, 2024 Team Status: Inactive Member Role Status Dates Donnell Raymond DO Primary Care Provide r, Attending Provider Active Start: April 06, 2024 End: April 06, 2024 Goals (unrecognized section and content) Goals may be documented in a n alternate section FOR RECORDS PERTAINING TO PATIENTS WHO ARE OR HAVE BEEN ENROLLED IN A CHEMICAL DEPENDENCY/SUBSTANCEABUSE PROGRAM, SOME INFORMATION MAY BE OMITTED. This clinical summary was aggregated from multiple sources. Caution should be exercised in using it in the provision of clinical care. This summary normalizes information from multiple sources, and as a consequence, information in this document may materially change the coding, format and clinical context of patient data. In addition, data may be omitted in some cases. CLINICAL DECISIONS SHOULD BE BASED ON THE PRIMARY CLINICAL RECORDS. [facility] [employer] [facility]. provides no warranty or guarantee of the accuracy or completeness of information in this document.
== END 2024-07-11 10:41 | disposition home or self-care (01) ==
LOC: RAD 10:43
PROVIDERS: PCP Family Medicine; Visit Provider Family Medicine
DX: J18.9 Pneumonia, unspecified organism (principal)
CPT/HCPCS: 71046